=== PATIENT | female | born 1995 | race African-American/Black ===

== ENCOUNTER 2018-12-31 20:12 | Emergency (ER) | payer OTHER ==
--- NOTE | 2018-12-31 20:41 | EDM.PDOC ---
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 Past medical history: As per history of present illness and as reviewed below otherwise noncontributory. Surgical history: As per history of present illness and as reviewed below otherwise noncontributory. Social history: No reported history of drug or alcohol abuse. Family history: As per history of present illness and as reviewed below otherwise noncontributory. Physical exam: HEENT: Atraumatic, normocephalic, pupils reactive, negative for conjunctival pallor or scleral icterus, mucous membranes moist, throat clear, neck supple, nontender, trachea midline. Lungs: Clear to auscultation, breath sounds equal bilaterally, chest nontender. Heart: S1S2, regular, negative for clicks, rubs, or JVD. Abdomen: Soft, nondistended, nontender. Negative for masses or hepatosplenomegaly. Negative for costovertebral tenderness. Pelvis: Stable nontender. Genitourinary: Deferred. Rectal: Deferred. Extremities: Atraumatic, negative for cords or calf pain. Neurovascular unremarkable. Neuro: Awake, alert, oriented. Cranial nerves II through XII unremarkable. Cerebellum unremarkable. Motor and sensory unremarkable throughout. Exam nonfocal. Diagnostics: CBC CMP quantitative beta UA ABO Rh pelvic ultrasound Therapeutics: None Impression: #1 first trimester #2 threatened #3 medical screening Definitive disposition and diagnosis as appropriate pending reevaluation and review of above. bilateral lower side Pain Score (Numeric/FACES): 7 - Related Data Allergies Allergy/AdvReac Type Severity Reaction Status Date / Time No Known Allergies Allergy Verified 12/31/18 20:24 Home Meds: Home Meds #103/Iron Fumarate/Fa [ ] 1 tab PO DAILY 12/31/18 [ History] Past Medical History - Past Health History Medical/Surgical History: Denies Medical/Surgical History Social & Family History - Family History Family Medical History: Noncontributory - Tobacco Use Smoking Status *Q: Never Smoker - Recreational Drug Use Recreational Drug Use: No ED ROS GENERAL - Review of Systems Review Of Systems: ROS reveals no pertinent complaints other than HPI. ED EXAM, GENERAL - Physical Exam Exam: See Below (See dictation) Course - Vital Signs Last Recorded V/S: Last Vital Signs Temp 36.1 C 12/31/18 20:12 Pulse 76 12/31/18 20:12 Resp 18 12/31/18 20:12 BP 109/67 12/31/18 20:12 Pulse Ox 98 12/31/18 20:12 - Orders/Labs/Meds Orders: Active Orders 24 hr Category Date Time Status OB 1st Tri Sgl 1st Gest [US] Stat Exams 12/31/18 20:22 Taken ABO/RH TYPE [BBK] Stat Lab 12/31/18 20:31 Received CULTURE URINE [RM] Stat Lab 12/31/18 20:30 Received Labs: Laboratory Tests 12/31/18 12/31/18 12/31/18 Range/Units 20:30 20:31 20:31 WBC 6.37 (4.0-11.0) K/uL RBC 4.05 L (4.30-5.90) M/uL Hgb 12.3 (12.0-16.0) g/dL Hct 35.7 L (36.0-46.0) % MCV 88.1 (80.0-98.0) fL MCH 30.4 (27.0-32.0) pg MCHC 34.5 (31.0-37.0) g/dL RDW Std Deviation 42.8 (28.0-62.0) fl RDW Coeff of Lyle 13 (11.0-15.0) % Plt Count 303 (150-400) K/uL MPV 9.30 (7.40-12.00) fL Neut % (Auto) 51.6 (48.0-80.0) % Lymph % (Auto) 39.6 (16.0-40.0) % [place] % (Auto) 7.1 (0.0-15.0) % Eos % (Auto) 1.4 (0.0-7.0) % Baso % (Auto) 0.3 (0.0-1.5) % Neut # (Auto) 3.3 (1.4-5.7) K/uL Lymph # (Auto) 2.5 H (0.6-2.4) K/uL [place] # (Auto) 0.5 (0.0-0.8) K/uL Eos # (Auto) 0.1 (0.0-0.7) K/uL Baso # (Auto) 0.0 (0.0-0.1) K/uL Nucleated RBC % 0.0 /100WBC Nucleated RBCs # 0 K/uL Sodium 139 (136-145) mmol/L Potassium 3.5 (3.5-5.1) mmol/L Chloride 104 (98-107) mmol/L Carbon Dioxide 22.4 (21.0-32.0) mmol/L BUN 7 (7.0-18.0) mg/dL Creatinine 0.8 (0.6-1.0) mg/dL Est Cr Clr Drug Dosing TNP Estimated GFR (MDRD) > 60.0 ml/min Glucose 98 (74-106) mg/dL Calcium 8.8 (8.5-10.1) mg/dL Total Bilirubin 0.2 (0.2-1.0) mg/dL AST 15 (15-37) IU/L ALT 13 L (14-63) IU/L Alkaline Phosphatase 59 (46-116) U/L Total Protein 8.0 (6.4-8.2) g/dL Albumin 3.4 (3.4-5.0) g/dL Globulin 4.6 H (2.6-4.0) g/dL Albumin/Globulin Ratio 0.7 L (0.9-1.6) HCG, Quant 88705.0 mIU/mL Urine Color YELLOW Urine Appearance CLEAR Urine pH 6.0 (5.0-8.0) Ur Specific [place] 1.010 (1.001-1.035) Urine Protein NEGATIVE (NEGATIVE) mg/dL Urine Glucose (UA) NEGATIVE (NEGATIVE) mg/dL Urine Ketones NEGATIVE (NEGATIVE) mg/dL Urine Occult Blood NEGATIVE (NEGATIVE) Urine Nitrite NEGATIVE (NEGATIVE) Urine Bilirubin NEGATIVE (NEGATIVE) Urine Urobilinogen 0.2 (<2.0) EU/dL Ur Leukocyte Esterase TRACE H (NEGATIVE) Urine RBC NONE SEEN (0-2/HPF) Urine WBC 0-1 (0-5/HPF) Ur Epithelial Cells RARE (NONE-FEW) Urine Bacteria 1+ H (NEGATIVE) Urine Mucus LIGHT (NONE-MOD) Departure - Departure Time of Disposition: 22:01 Disposition: Home, Self-Care 01 Condition: Good Clinical Impression: Threatened miscarriage - Discharge Information Forms: ED Department Discharge Additional Instructions: The following information is given to patients seen in the emergency department who are being discharged to home. This information is to outline your options for follow-up care. We provide all patients seen in our emergency department with a follow-up referral. The need for follow-up, as well as the timing and circumstances, are variable depending upon the specifics of your emergency department visit. If you don't have a primary care physician on staff, we will provide you with a referral. We always advise you to contact your personal physician following an emergency department visit to inform them of the circumstance of the visit and for follow-up with them and/or the need for any referrals to a consulting specialist. The emergency department will also refer you to a specialist when appropriate. This referral assures that you have the opportunity for followup care with a specialist. All of these measure are taken in an effort to provide you with optimal care, which includes your followup. Under all circumstances we always encourage you to contact your private physician who remains a resource for coordinating your care. When calling for followup care, please make the office aware that this follow-up is from your recent emergency room visit. If for any reason you are refused follow-up, please contact the [facility] emergency department at and asked to speak to the emergency department charge nurse. Vaginal rest as discussed follow-up WRAP KNITTING MACHINE OPERATOR return as needed as discussed - My Orders Last 24 Hours: My Active Orders 12/31/18 20:22 OB 1st Tri Sgl 1st Gest [US] Stat 12/31/18 20:30 CULTURE URINE [RM] Stat 12/31/18 20:31 ABO/RH TYPE [BBK] Stat - Assessment/Plan Last 24 Hours: My Active Orders 12/31/18 20:22 OB 1st Tri Sgl 1st Gest [US] Stat 12/31/18 20:30 CULTURE URINE [RM] Stat 12/31/18 20:31 ABO/RH TYPE [BBK] Stat
[2018-12-31 21:23] LABS: CHLORIDE,CL 104 mmol/L (98-107); SODIUM,NA 139 mmol/L (136-145)
--- NOTE | 2018-12-31 22:12 | US ---
INDICATION: Pelvic pain TECHNIQUE: Ultrasound OB pelvis transvaginal. Real time ferrell scale imaging of the pelvis was performed. Illness transducer was used to image the right lower quadrant in an attempt to identify the appendix. COMPARISON: None FINDINGS: Gestational sac: Sonographic imaging demonstrates a single intrauterine gestation with a normal appearance. A small subchorionic hemorrhage is noted measuring 1.5 x 1.2 cm.The amount of fluid within the sac appears appropriate for gestational age. Fetus: The embryo demonstrates a regular cardiac rate measuring 99 beats per minute. The embryo`s crown rump length measurement of 28 mm corresponds to a gestational age of 5 weeks, 6 days. There are no gross abnormalities noted within the embryo at this early state of development. There is a normal appearing yolk sac. Placenta: The placenta has not yet developed. Pelvis: The visualized cervix is closed. The visualized myometrium appears normal. The ovaries are of normal size. A thick-walled isoechoic structure seen in the right ovary, likely a corpus luteal cyst. Arterial blood flow is seen in both ovaries. A small amount of pelvic ascites noted. An anechoic tubular structure seen in the right lower quadrant which may represent a fallopian tube or loop of bowel. The appendix cannot be visualized by sonography. IMPRESSION: 1. Single viable intrauterine with an estimated gestational age of 5 weeks, 6 days. 2. bradycardia is noted and follow-up imaging is recommended. 3. A small subchorionic hemorrhage is noted measuring 1.5 x 1.2 cm. Dictated by Bakari Islas MD @ 12/31/2018 10:11:28 PM Dictated by: Bakari Islas MD @ 12/31/2018 22:11:43 (Electronically Signed)
== END 2018-12-31 22:17 | disposition home or self-care (01) ==
LOC: MW.ED 20:12
DX: O20.0 Threatened abortion (principal); Z3A.01 Less than 8 weeks gestation of pregnancy
CPT/HCPCS: 36415; 76801; 76801-26; 80053; 81001; 84702; 85025; 86900; 86901; 87086; 99284-25

== ENCOUNTER 2019-08-09 06:05 | Inpatient (IN) | payer OTHER ==
[2019-08-09] MEDS ORDERED: Methylergonovine 0.2 MG/1 ML Amp IM PRN (18:15)
[2019-08-09] MEDS ORDERED: Sodium Chloride 0.9% 10 ML Syringe FLUSH PRN (18:15)
[2019-08-09] MEDS ORDERED: Ondansetron 4 MG/2 ML SDV IVPUSH PRN (18:15)
[2019-08-09] MEDS ORDERED: Oxytocin/0.9 % Sodium Chloride 30 UNIT/500 ML BAG IV SCH ×2 (18:15)
[2019-08-09] MEDS ORDERED: Sodium Chloride 0.9% 2.5 ML Syringe FLUSH PRN (18:15)
[2019-08-09] MEDS ORDERED: Carboprost Tromethamine 250 MCG/1 ML Amp IM PRN (18:15)
[2019-08-09] MEDS ORDERED: Misoprostol 200 MCG Tab PO PRN (18:15)
[2019-08-09] MEDS ORDERED: Tranexamic Acid 1,000 MG in Sodium Chloride 0.9% 100 ML IV PRN (18:15)
[2019-08-09] MEDS ORDERED: Sodium Chloride 0.9% 10 ML SDV IV PRN (18:15)
[2019-08-09] MEDS ORDERED: Terbutaline 1 MG/ML SDV SUBCUT PRN (18:15)
[2019-08-09] MEDS ORDERED: Dinoprostone 10 MG Insert VAG PRN (18:15)
[2019-08-09] MEDS ORDERED: Water For Irrigation,Sterile 1,000 ML Container IRR PRN (18:15)
[2019-08-09] MEDS ORDERED: Lidocaine 1% 50 ML MDV INJECT PRN (18:15)
[2019-08-09] MEDS ORDERED: Ampicillin 2 GM in Sodium Chloride 0.9% 100 ML IV ONE (18:30)
[2019-08-09] MEDS: Lactated Ringers 1,000 ML IV SCH (20:38)
[2019-08-10] MEDS: Ampicillin 1 GM in Sodium Chloride 0.9% 50 ML IV SCH ×2 (00:58→04:49)
[2019-08-10] MEDS: Acetaminophen 500 MG Tab PO PRN ×2 (02:01→10:36)
[2019-08-10] MEDS: Butorphanol 1 MG/ML SDV IVPUSH PRN ×2 (03:00→05:30)
[2019-08-10] MEDS: Lactated Ringers 1,000 ML IV SCH (05:32)
[2019-08-10] MEDS ORDERED: Acetaminophen 500 MG Tab PO PRN ×2 (06:29)
[2019-08-10] MEDS ORDERED: Aluminum Hydroxide/Magnesium Hydroxide/Simethicone Susp 30 ML Cup PO PRN (06:29)
[2019-08-10] MEDS ORDERED: Lanolin 100% Cream 7 GM Tube TOP PRN (06:29)
[2019-08-10] MEDS ORDERED: Docusate Sodium 100 MG Cap PO PRN (06:29)
[2019-08-10] MEDS ORDERED: Witch Hazel Medicated Pads 40/Jar TOP PRN (06:29)
[2019-08-10] MEDS ORDERED: Ibuprofen 400 MG Tab PO PRN (06:29)
[2019-08-10] MEDS ORDERED: Bisacodyl 10 MG Supp RECTAL PRN (06:29)
[2019-08-10] MEDS ORDERED: Benzocaine/Menthol 20%-0.5% Spray 78 GM Cannister TOP PRN (06:29)
--- NOTE | 2019-08-10 06:39 | PCM.OPNOTE ---
- General Post-Op/Procedure Note Date of Surgery/Procedure: 08/10/19 Operative Procedure(s): /IP-precipitous Findings: Viable male APGARs 7,9 weight 2300 gm. Spontaneous delivery intact placenta with 3V cord Pre Op Diagnosis: 37 week IUP. IUGR Post-Op Diagnosis: Same Primary Surgeon: Bibi Barnes EBL in mLs: 250 Complications: none known Condition: Good Free Text/Narrative:: Dictation [id number]
[2019-08-10] MEDS: Ibuprofen 800 MG Tab PO PRN ×2 (07:57→21:36)
--- NOTE | 2019-08-10 08:40 | OR ---
SURGEON: Bibi Barnes M.D. DATE OF PROCEDURE: 08/10/2019 PREOPERATIVE DIAGNOSES: 1. 37-week intrauterine . 2. Intrauterine growth restriction. POSTOPERATIVE DIAGNOSES: 1. 37-week intrauterine . 2. Intrauterine growth restriction. PROCEDURE: Spontaneous vaginal delivery, intact perineum, precipitous. PRIMARY SURGEON: Bibi Barnes M.D. ANESTHESIA: None. ESTIMATED BLOOD LOSS: 250 mL. COMPLICATIONS: None. FINDINGS: Viable male, scores 7 at 1 minute and 9 at 5 minutes. Weight of 2300 g. Spontaneous delivery, intact placenta, 3-vessel cord. DISPOSITION: Infant to nursery, mom in LDRP. PROCEDURE DETAILS: Janette is a 24-year-old , who has been on the evening of 08/10/2019 after undergoing routine OB care and with her weekly surveillance for intrauterine growth restriction, umbilical artery Dopplers were abnormal measuring greater than the 95th percentile for gestational age. Given this abnormal finding, felt it was best to proceed with induction of labor. Therefore, the patient was admitted. Routine labs were drawn. IV hydration was initiated. She underwent Cervidil placement after reactive NST was able to be obtained. The patient responded very nicely to the Cervidil becoming quickly increasingly comfortable. Shortly after 2:00 a.m., she was found to be 3 cm, 74% effaced, and -2 station. Therefore, the Cervidil was removed and was monitored. Upon the start of Pitocin, however, within the next 3 hours, had progressed to 6 cm, 90% effaced, +1 station. heart tones remained in the 140s. The patient underwent 1 dose of stadol and then within the next hour progressed to complete, 100% effaced, +2 station with spontaneous rupture of membranes, feeling much urge to push, and I was called for delivery. Upon my arrival, the had delivered precipitously with the attending nursing staff present. Infant was vigorous and crying. Cord was clamped x2 and cut. was handed off to attending nursing staff. Cord arterial, cord venous, cord blood sampling were obtained. Light suprapubic pressure was applied while the placenta was delivered spontaneously intact, this will be sent to pathology. Vigorous fundal uterine massage was then applied while 30 units of Pitocin was delivered in 500 mL of IV fluid. Upon inspection of cervix, vaginal sidewall, and perineum, these were found to be intact. Uterus remained firm. Hemostasis remained evident. The patient will remain in LDRP, infant to nursery. JOSELITO WILL /[id number] MTDD
[2019-08-10] MEDS: oxyCODONE 5 MG Tab PO PRN ×2 (10:35→21:34)
[2019-08-11] MEDS: Ibuprofen 800 MG Tab PO PRN (07:33)
--- NOTE | 2019-08-11 09:01 | PCM.PNPP ---
- General Info Date of Service: 08/11/19 Functional Status: Reports: Pain Controlled, Tolerating Diet, Ambulating, Urinating - Review of Systems General: Denies: Fever, Weakness, Fatigue Pulmonary: Denies: Shortness of Breath Cardiovascular: Denies: Chest Pain, Palpitations, Lightheadedness Gastrointestinal: Denies: Nausea, Vomiting Genitourinary: Denies: Flank Pain Musculoskeletal: Reports: No Symptoms Skin: Reports: No Symptoms Neurological: Reports: No Symptoms Psychiatric: Reports: No Symptoms - General Info Date of Service: 08/11/19 - Patient Data Vital Signs - Most Recent: Last Vital Signs Temp 36.9 C 08/11/19 04:00 Pulse 73 08/11/19 04:00 Resp 16 08/11/19 04:00 BP 91/61 08/11/19 04:00 Pulse Ox 99 08/11/19 04:00 Weight - Most Recent: 54.431 kg Lab Results - Last 24 Hours: Laboratory Results - last 24 hr 08/11/19 Range/Units 06:25 Hgb 11.4 L (12.0-16.0) g/dL Hct 34.4 L (36.0-46.0) % Med Orders - Current: Current Medications Acetaminophen (Tylenol Extra Strength) 1,000 mg PO Q6H PRN PRN Reason: Headache Last Admin: 08/10/19 10:36 Dose: 1,000 mg Acetaminophen (Tylenol Extra Strength) 500 mg PO Q4H PRN PRN Reason: Pain Acetaminophen (Tylenol Extra Strength) 1,000 mg PO Q4H PRN PRN Reason: Pain Last Admin: 08/11/19 07:34 Dose: 1,000 mg Al Hydroxide/Mg Hydroxide (Mag-Al Plus) 30 ml PO Q8H PRN PRN Reason: Heartburn Benzocaine/Menthol (Dermoplast Pain Relief 20%-0.5% [place]) 78 gm TOP ASDIRECTED PRN PRN Reason: Perineal Comfort Measure Last Admin: 08/10/19 07:59 Dose: 1 applic Bisacodyl (Dulcolax) 10 mg RECTAL ONETIME PRN PRN Reason: Constipation Carboprost Tromethamine (Hemabate Ds) 250 mcg IM ASDIRECTED PRN PRN Reason: Post Hemorrhage Docusate Sodium (Colace) 100 mg PO BID PRN PRN Reason: Constipation Last Admin: 08/10/19 07:57 Dose: 100 mg Emollient Ointment (Lansinoh Hpa) 0 gm TOP ASDIRECTED PRN PRN Reason: Sore Nipples Last Admin: 08/10/19 07:56 Dose: 1 applic Lactated Ringer's (Ringers, Lactated) 1,000 mls @ 150 mls/hr IV ASDIRECTED ALEX Last Admin: 08/10/19 05:32 Dose: 150 mls/hr Tranexamic Acid 1,000 mg/ (Sodium Chloride) 110 mls @ 660 mls/hr IV ONETIME PRN PRN Reason: Bleeding Ibuprofen (Motrin) 400 mg PO Q4H PRN PRN Reason: Pain Ibuprofen (Motrin) 800 mg PO Q6H PRN PRN Reason: Pain Last Admin: 08/11/19 07:33 Dose: 800 mg Ondansetron HCl (Zofran) 4 mg IVPUSH Q4H PRN PRN Reason: Nausea/Vomiting Oxycodone HCl (Oxycodone) 5 mg PO Q2H PRN PRN Reason: Pain Last Admin: 08/10/19 21:34 Dose: 5 mg Sodium Chloride (Saline Flush) 10 ml FLUSH ASDIRECTED PRN PRN Reason: Keep Vein Open Sodium Chloride (Saline Flush) 2.5 ml FLUSH ASDIRECTED PRN PRN Reason: Keep Vein Open Sodium Chloride (Normal Saline) 10 ml IV ASDIRECTED PRN PRN Reason: IV Use Witch Lesli (Tucks) 1 pad TOP ASDIRECTED PRN PRN Reason: comfort care Last Admin: 08/10/19 08:00 Dose: 1 applic Discontinued Medications Butorphanol Tartrate (Stadol) 1 mg IVPUSH Q1H PRN PRN Reason: Pain Last Admin: 08/10/19 05:30 Dose: 1 mg Dinoprostone (Cervidil) 10 mg VAG ONETIME PRN PRN Reason: Cervical Ripening Last Admin: 08/09/19 20:23 Dose: 10 mg Ampicillin Sodium 2 gm/ Sodium (Chloride) 100 mls @ 200 mls/hr IV ONETIME ONE Stop: 08/09/19 18:59 Last Admin: 08/09/19 20:38 Dose: 200 mls/hr Ampicillin Sodium 1 gm/ Sodium (Chloride) 50 mls @ 100 mls/hr IV Q4H ALEX Last Admin: 08/10/19 04:49 Dose: 100 mls/hr Oxytocin/Sodium Chloride (Oxytocin 30 Unit/500 Ml-Ns) 30 unit in 500 mls @ 500 mls/hr IV TITRATE ALEX Last Admin: 08/10/19 06:06 Dose: 999 mls/hr Oxytocin/Sodium Chloride (Oxytocin 30 Unit/500 Ml-Ns) 30 unit in 500 mls @ 2 mls/hr IV TITRATE ALEX; Protocol Lidocaine HCl (Xylocaine 1%) 50 ml INJECT ONETIME PRN PRN Reason: Laceration repair Methylergonovine Maleate (Methergine) 0.2 mg IM ASDIRECTED PRN PRN Reason: Post Hemorrhage Misoprostol (Cytotec) 200 mcg PO ONETIME PRN PRN Reason: Post Hemorrhage Sterile Water (Sterile Water For Irrigation) 1,000 ml IRR ASDIRECTED PRN PRN Reason: delivery Last Admin: 08/10/19 06:33 Dose: 1,000 ml Terbutaline Sulfate (Brethine) 0.25 mg SUBCUT ASDIRECTED PRN PRN Reason: Tacysystole - Interaction Support Person: - Recovery Exam Fundal Tone: Firm Fundal Level: 2 Fingerbreadths Below Umbilicus Fundal Placement: Midline Lochia Amount: Small Lochia Color: Rubra/Red Perineum Description: Intact, Minimal Bruising/Swelling Episiotomy/Laceration: None Bladder Status: Voiding Urinary Elimination: Voided - Exam General: Alert, Oriented Lungs: Normal Respiratory Effort Cardiovascular: Regular Rate, Regular Rhythm GI/Abdominal Exam: Normal Bowel Sounds, Soft Extremities: Pedal Edema (trace). No: Favian's Sign Skin: Warm, Dry, Intact Neurological: No New Focal Deficit Psy/Mental Status: Alert, Normal Affect, Normal Mood - Problem List & Annotations (1) Vaginal delivery SNOMED Code(s): 219855149 Code(s): O80 - ENCOUNTER FOR FULL-TERM UNCOMPLICATED DELIVERY Status: Acute Current Visit: Yes - Problem List Review Problem List Initiated/Reviewed/Updated: Yes - My Orders Last 24 Hours: My Active Orders 08/11/19 08:55 Ready for Discharge [RC] PER UNIT ROUTINE - Assessment Assessment:: PPD 1 status post - Plan Plan:: Patient doing well overall and would like to go home. Discharge instructions reviewed. Follow up at [facility] 6 weeks.Discharge to home today.
== END 2019-08-11 15:50 | disposition home or self-care (01) | DRG 807 ==
LOC: MW.OB 06:05 → OBSVTOIN 08-10 06:05 → MW.OB 08-10 08:52
PROVIDERS: ADMIT Obstetrics & Gynecology; ATTEND Obstetrics & Gynecology
PROC: 10E0XZZ Delivery of Products of Conception, External Approach (ICD-10-PCS; principal; 2019-08-11)
PROC: 3E0P7VZ Introduction of Hormone into Female Reproductive, Via Natural or Artificial Opening (ICD-10-PCS; 2019-08-11)
PROC: 3E033VJ Introduction of Other Hormone into Peripheral Vein, Percutaneous Approach (ICD-10-PCS; 2019-08-11)
DX: O36.5930 Maternal care for other known or suspected poor fetal growth, third trimester, not applicable or unspecified (principal); Z37.0 Single live birth; O62.3 Precipitate labor; Z3A.37 37 weeks gestation of pregnancy
CPT/HCPCS: 36415; 59025; 59409; 82803; 85014; 85018; 85027; 86593; 86850; 86900; 86901; 88307; A9270-GY; J0290; J0595; J2590; J7030; J7050; J7120

== ENCOUNTER 2021-05-23 08:29 | Inpatient (IN) | payer OTHER ==
[2021-05-23] MEDS ORDERED: Oxytocin/0.9 % Sodium Chloride 30 UNIT/500 ML BAG ONE (08:50)
[2021-05-23] MEDS ORDERED: Misoprostol 200 MCG Tab PO PRN (09:05)
[2021-05-23] MEDS ORDERED: Sodium Chloride 0.9% 10 ML SDV IV PRN (09:05)
[2021-05-23] MEDS ORDERED: Ondansetron 4 MG/2 ML SDV IVPUSH PRN (09:05)
[2021-05-23] MEDS ORDERED: Lidocaine 1% 50 ML MDV INJECT PRN (09:05)
[2021-05-23] MEDS ORDERED: Methylergonovine 0.2 MG/1 ML Amp IM PRN (09:05)
[2021-05-23] MEDS ORDERED: Butorphanol 1 MG/ML SDV IVPUSH PRN (09:05)
[2021-05-23] MEDS ORDERED: Carboprost Tromethamine 250 MCG/1 ML Amp IM PRN (09:05)
[2021-05-23] MEDS ORDERED: Water For Irrigation,Sterile 1,000 ML Container IRR PRN (09:05)
[2021-05-23] MEDS ORDERED: Sodium Chloride 0.9% 2.5 ML Syringe FLUSH PRN (09:05)
[2021-05-23] MEDS ORDERED: Sodium Chloride 0.9% 10 ML Syringe FLUSH PRN (09:05)
[2021-05-23] MEDS ORDERED: Tranexamic Acid 1,000 MG in Sodium Chloride 0.9% 100 ML IV PRN (09:05)
[2021-05-23] MEDS ORDERED: Oxytocin/0.9 % Sodium Chloride 30 UNIT/500 ML BAG IV SCH (09:15)
[2021-05-23] MEDS ORDERED: Lactated Ringers 1,000 ML IV SCH (09:15)
[2021-05-23] MEDS ORDERED: Benzocaine/Menthol 20%-0.5% Spray 78 GM Cannister TOP PRN (09:38)
[2021-05-23] MEDS ORDERED: Ibuprofen 400 MG Tab PO PRN (09:38)
[2021-05-23] MEDS ORDERED: Witch Hazel Medicated Pads 40/Jar TOP PRN (09:38)
[2021-05-23] MEDS ORDERED: Bisacodyl 10 MG Supp RECTAL PRN (09:38)
[2021-05-23] MEDS ORDERED: oxyCODONE 5 MG Tab PO PRN (09:38)
[2021-05-23] MEDS ORDERED: Acetaminophen 500 MG Tab PO PRN (09:38)
[2021-05-23] MEDS ORDERED: Lanolin 100% Cream 7 GM Tube TOP PRN (09:38)
--- NOTE | 2021-05-23 09:45 | PCM.OPNOTE ---
- General Post-Op/Procedure Note Date of Surgery/Procedure: 05/23/21 Operative Procedure(s): /IP Precipitous Findings: Viable female APGARs 8, 8 weight pending. Spontaneous delivery intact placenta with 3V cord Pre Op Diagnosis: 37/6 week IUP. Active labor. GBBS unknown Post-Op Diagnosis: Same Primary Surgeon: Bibi Barnes EBL in mLs: 250 Complications: none known Condition: Good Free Text/Narrative:: Dictation [id number]
[2021-05-23] MEDS: Ibuprofen 800 MG Tab PO PRN ×2 (10:09→20:48)
--- NOTE | 2021-05-23 11:34 | OR ---
SURGEON: Bibi Barnes M.D. DATE OF PROCEDURE: 05/23/2021 PREOPERATIVE DIAGNOSES: 1. 37 and 6/7 weeks' intrauterine . 2. Active labor. 3. Group B strep unknown. POSTOPERATIVE DIAGNOSES: 1. 37 and 6/7 weeks' intrauterine . 2. Active labor. 3. Group B strep unknown. PROCEDURE: Spontaneous vaginal delivery, intact perineum. PRIMARY SURGEON: Bibi Barnes M.D. ANESTHESIA: None. ESTIMATED BLOOD LOSS: 250 mL. COMPLICATIONS: None known. FINDINGS: Viable female, score of 8 at one minute and 8 at five minutes. Weight is pending. Spontaneous delivery, intact placenta, 3-vessel cord. DISPOSITION: to nursery, mom in LDRP. PROCEDURE DETAILS: Janette is a 25-year-old, G2, P1, at 37 and 6/7 weeks' gestational age, who presents on the morning of 05/23/2021 with regular contractions. On initial examination, she was found to be 9 cm. Therefore, she was admitted, routine labs drawn. IV hydration was initiated and she quickly progressed to complete. As I was in the next room, called for delivery. The head delivered precipitously with the labor and delivery nurse attending. Remainder of the body was delivered without difficulty. was handed off to the mother with attending nursery staff at her side. After a delay, cord was clamped x2 and cut. Cord blood sampling was obtained. Light pressure was applied while the placenta was delivered spontaneously intact. Vigorous fundal uterine massage was then applied while 30 units of Pitocin was delivered in 500 mL of IV fluid. Upon inspection of cervix, vaginal sidewall, and perineum, these were found to be intact. Uterus remained firm. Sponge and instrument count was correct. The patient remained in LDRP, infant to nursery. JOSELITO / NICOLETTE /[id number]
[2021-05-23] MEDS: Docusate Sodium 100 MG Cap PO PRN (13:56)
[2021-05-23] MEDS: Acetaminophen 500 MG Tab PO PRN ×2 (13:56→19:16)
[2021-05-24] MEDS: Docusate Sodium 100 MG Cap PO PRN ×2 (08:05→22:22)
[2021-05-24] MEDS: Ibuprofen 800 MG Tab PO PRN ×2 (08:05→16:49)
--- NOTE | 2021-05-24 10:38 | PCM.PNPP ---
- General Info Date of Service: 05/24/21 Subjective Update: 25yo P2012 s/p PPD1 , doing well, ambulating , voiding and tolerating regular diet Normal lochia Functional Status: Reports: Pain Controlled, Tolerating Diet, Ambulating, Urinating - Review of Systems General: Reports: No Symptoms HEENT: Reports: No Symptoms Pulmonary: Reports: No Symptoms Cardiovascular: Reports: No Symptoms Gastrointestinal: Reports: No Symptoms Genitourinary: Reports: No Symptoms Musculoskeletal: Reports: No Symptoms Skin: Reports: No Symptoms Neurological: Reports: No Symptoms Psychiatric: Reports: No Symptoms - General Info Date of Service: 05/24/21 - Patient Data Vital Signs - Most Recent: Last Vital Signs Temp 36.1 C 05/24/21 08:23 Pulse 67 05/24/21 08:23 Resp 16 05/24/21 08:23 BP 92/55 L 05/24/21 08:23 Pulse Ox 98 05/24/21 08:23 Weight - Most Recent: 55.792 kg Lab Results - Last 24 Hours: Laboratory Results - last 24 hr 05/24/21 Range/Units 05:05 Hgb 10.2 L (12.0-16.0) g/dL Hct 30.8 L (36.0-46.0) % Med Orders - Current: Current Medications Acetaminophen (Acetaminophen 500 Mg Tab) 500 mg PO Q4H PRN PRN Reason: Pain (mild 1-3) Last Admin: 05/24/21 02:31 Dose: 500 mg Documented by: Acetaminophen (Acetaminophen 500 Mg Tab) 1,000 mg PO Q4H PRN PRN Reason: Pain (mild 1-3) Last Admin: 05/23/21 19:16 Dose: 1,000 mg Documented by: Benzocaine/Menthol (Benzocaine/Menthol 20%-0.5% [place] 78 Gm Cannister) 78 gm TOP ASDIRECTED PRN PRN Reason: Perineal Comfort Measure Last Admin: 05/23/21 10:13 Dose: 1 bottle Documented by: Bisacodyl (Bisacodyl 10 Mg Supp) 10 mg RECTAL ONETIME PRN PRN Reason: Constipation Carboprost Tromethamine (Carboprost Tromethamine 250 Mcg/1 Ml Amp) 250 mcg IM ASDIRECTED PRN PRN Reason: Post Hemorrhage Docusate Sodium (Docusate Sodium 100 Mg Cap) 100 mg PO Q12H PRN PRN Reason: Constipation Last Admin: 05/24/21 08:05 Dose: 100 mg Documented by: Emollient Ointment (Lanolin 100% Cream 7 Gm Tube) 0 gm TOP ASDIRECTED PRN PRN Reason: Sore Nipples Last Admin: 05/23/21 10:13 Dose: 1 applic Documented by: Lactated Ringer's (Ringers, Lactated) 1,000 mls @ 150 mls/hr IV ASDIRECTED ALEX Last Admin: 05/23/21 08:58 Dose: 150 mls/hr Documented by: Oxytocin/Sodium Chloride (Oxytocin 30 Unit/500 Ml-Ns) 30 unit in 500 mls @ 999 mls/hr IV TITRATE [facility] Last Admin: 05/23/21 09:20 Dose: 999 mls/hr Documented by: Tranexamic Acid 1,000 mg/ (Sodium Chloride) 110 mls @ 660 mls/hr IV ONETIME PRN PRN Reason: Bleeding Ibuprofen (Ibuprofen 400 Mg Tab) 400 mg PO Q4H PRN PRN Reason: Pain (mild 1-3) Ibuprofen (Ibuprofen 800 Mg Tab) 800 mg PO Q6H PRN PRN Reason: Pain (mild 1-3) Last Admin: 05/24/21 08:05 Dose: 800 mg Documented by: Lidocaine HCl (Lidocaine 1% 50 Ml Mdv) 50 ml INJECT ONETIME PRN PRN Reason: Laceration repair Methylergonovine Maleate (Methylergonovine 0.2 Mg/1 Ml Amp) 0.2 mg IM ASDIRECTED PRN PRN Reason: Post Hemorrhage Ondansetron HCl (Ondansetron 4 Mg/2 Ml Sdv) 4 mg IVPUSH Q6H PRN PRN Reason: Nausea/Vomiting Oxycodone HCl (Oxycodone 5 Mg Tab) 5 mg PO Q2H PRN PRN Reason: Pain (severe 7-10) Last Admin: 05/24/21 02:32 Dose: 5 mg Documented by: Sodium Chloride (Sodium Chloride 0.9% 10 Ml Syringe) 10 ml FLUSH ASDIRECTED PRN PRN Reason: Keep Vein Open Sodium Chloride (Sodium Chloride 0.9% 2.5 Ml Syringe) 2.5 ml FLUSH ASDIRECTED PRN PRN Reason: Keep Vein Open Sodium Chloride (Sodium Chloride 0.9% 10 Ml Sdv) 10 ml IV ASDIRECTED PRN PRN Reason: IV Use Sterile Water (Water For Irrigation,Sterile 1,000 Ml Container) 1,000 ml IRR ASDIRECTED PRN PRN Reason: delivery Witch Lesli (Witch Lesli Medicated Pads 40/Jar) 1 pad TOP ASDIRECTED PRN PRN Reason: comfort care Last Admin: 05/23/21 10:12 Dose: 1 container Documented by: Discontinued Medications Butorphanol Tartrate (Butorphanol 1 Mg/Ml Sdv) 1 mg IVPUSH Q1H PRN PRN Reason: Pain (severe 7-10) Oxytocin/Sodium Chloride (Oxytocin 30 Unit/500 Ml-Ns) Confirm Administered Dose 30 unit in 500 mls @ as directed .ROUTE .STK-MED ONE Stop: 05/23/21 08:51 Misoprostol (Misoprostol 200 Mcg Tab) 200 mcg PO ONETIME PRN PRN Reason: Post Hemorrhage - Infant Interaction Support Person: - Recovery Exam Fundal Tone: Firm Fundal Level: 3 Fingerbreadths Below Umbilicus Fundal Placement: Midline Lochia Amount: Scant Lochia Color: Rubra/Red Perineum Description: Intact, Minimal Bruising/Swelling Episiotomy/Laceration: None Bladder Status: Voiding Urinary Elimination: Voided - Exam General: Alert HEENT: Pupils Equal Neck: Supple Lungs: Clear to Auscultation Cardiovascular: Regular Rate, Regular Rhythm Extremities: Normal Inspection Neurological: No New Focal Deficit Psy/Mental Status: Alert - Problem List & Annotations (1) Vaginal delivery SNOMED Code(s): 221237455 Code(s): O80 - ENCOUNTER FOR FULL-TERM UNCOMPLICATED DELIVERY Status: Acute Current Visit: No - Problem List Review Problem List Initiated/Reviewed/Updated: Yes - Assessment Assessment:: 25yo P2 s/p , PPD1 GBS unknown Doing well - Plan Plan:: Routine care Pain control as needed Encourage Possible D/C home tomorrow
[2021-05-24] MEDS: Acetaminophen 500 MG Tab PO PRN ×2 (13:32→22:21)
[2021-05-25] MEDS: Acetaminophen 500 MG Tab PO PRN ×2 (03:28→08:42)
[2021-05-25] MEDS: Ibuprofen 800 MG Tab PO PRN ×2 (03:29→12:48)
[2021-05-25] MEDS: Docusate Sodium 100 MG Cap PO PRN (08:41)
--- NOTE | 2021-05-25 10:53 | PCM.PNPP ---
- General Info Date of Service: 05/25/21 Subjective Update: 25yo P2012 s/p PPD2 , doing well, ambulating , voiding and tolerating regular diet Normal lochia Functional Status: Reports: Pain Controlled, Tolerating Diet, Ambulating, Urinating - Review of Systems General: Reports: No Symptoms HEENT: Reports: No Symptoms Pulmonary: Reports: No Symptoms Cardiovascular: Reports: No Symptoms Gastrointestinal: Reports: No Symptoms Genitourinary: Reports: No Symptoms Musculoskeletal: Reports: No Symptoms Skin: Reports: No Symptoms Neurological: Reports: No Symptoms Psychiatric: Reports: No Symptoms - General Info Date of Service: 05/25/21 - Patient Data Vital Signs - Most Recent: Last Vital Signs Temp 36.3 C 05/25/21 08:43 Pulse 66 05/25/21 08:43 Resp 16 05/25/21 08:43 BP 94/60 05/25/21 08:43 Pulse Ox 97 05/25/21 08:43 Weight - Most Recent: 55.792 kg Lab Results - Last 24 Hours: Laboratory Results - last 24 hr 05/23/21 Range/Units 08:58 Group B Strep (PCR) NEGATIVE (NEGATIVE) Med Orders - Current: Current Medications Acetaminophen (Acetaminophen 500 Mg Tab) 500 mg PO Q4H PRN PRN Reason: Pain (mild 1-3) Last Admin: 05/24/21 02:31 Dose: 500 mg Documented by: Acetaminophen (Acetaminophen 500 Mg Tab) 1,000 mg PO Q4H PRN PRN Reason: Pain (mild 1-3) Last Admin: 05/25/21 08:42 Dose: 1,000 mg Documented by: Benzocaine/Menthol (Benzocaine/Menthol 20%-0.5% [place] 78 Gm Cannister) 78 gm T OP ASDIRECTED PRN PRN Reason: Perineal Comfort Measure Last Admin: 05/23/21 10:13 Dose: 1 bottle Documented by: Bisacodyl (Bisacodyl 10 Mg Supp) 10 mg RECTAL ONETIME PRN PRN Reason: Constipation Carboprost Tromethamine (Carboprost Tromethamine 250 Mcg/1 Ml Amp) 250 mcg IM ASDIRECTED PRN PRN Reason: Post Hemorrhage Docusate Sodium (Docusate Sodium 100 Mg Cap) 100 mg PO Q12H PRN PRN Reason: Constipation Last Admin: 05/25/21 08:41 Dose: 100 mg Documented by: Emollient Ointment (Lanolin 100% Cream 7 Gm Tube) 0 gm TOP ASDIRECTED PRN PRN Reason: Sore Nipples Last Admin: 05/23/21 10:13 Dose: 1 applic Documented by: Lactated Ringer's (Ringers, Lactated) 1,000 mls @ 150 mls/hr IV ASDIRECTED [facility] Last Admin: 05/23/21 08:58 Dose: 150 mls/hr Documented by: Oxytocin/Sodium Chloride (Oxytocin 30 Unit/500 Ml-Ns) 30 unit in 500 mls @ 999 mls/hr IV TITRATE [facility] Last Admin: 05/23/21 09:20 Dose: 999 mls/hr Documented by: Tranexamic Acid 1,000 mg/ (Sodium Chloride) 110 mls @ 660 mls/hr IV ONETIME PRN PRN Reason: Bleeding Ibuprofen (Ibuprofen 400 Mg Tab) 400 mg PO Q4H PRN PRN Reason: Pain (mild 1-3) Ibuprofen (Ibuprofen 800 Mg Tab) 800 mg PO Q6H PRN PRN Reason: Pain (mild 1-3) Last Admin: 05/25/21 03:29 Dose: 800 mg Documented by: Lidocaine HCl (Lidocaine 1% 50 Ml Mdv) 50 ml INJECT ONETIME PRN PRN Reason: Laceration repair Methylergonovine Maleate (Methylergonovine 0.2 Mg/1 Ml Amp) 0.2 mg IM ASDIRECTED PRN PRN Reason: Post Hemorrhage Ondansetron HCl (Ondansetron 4 Mg/2 Ml Sdv) 4 mg IVPUSH Q6H PRN PRN Reason: Nausea/Vomiting Oxycodone HCl (Oxycodone 5 Mg Tab) 5 mg PO Q2H PRN PRN Reason: Pain (severe 7-10) Last Admin: 05/24/21 02:32 Dose: 5 mg Documented by: Sodium Chloride (Sodium Chloride 0.9% 10 Ml Syringe) 10 ml FLUSH ASDIRECTED PRN PRN Reason: Keep Vein Open Sodium Chloride (Sodium Chloride 0.9% 2.5 Ml Syringe) 2.5 ml FLUSH ASDIRECTED PRN PRN Reason: Keep Vein Open Sodium Chloride (Sodium Chloride 0.9% 10 Ml Sdv) 10 ml IV ASDIRECTED PRN PRN Reason: IV Use Sterile Water (Water For Irrigation,Sterile 1,000 Ml Container) 1,000 ml IRR ASDIRECTED PRN PRN Reason: delivery Witch Lesli (Witch Lesli Medicated Pads 40/Jar) 1 pad TOP ASDIRECTED PRN PRN Reason: comfort care Last Admin: 05/23/21 10:12 Dose: 1 container Documented by: Discontinued Medications Butorphanol Tartrate (Butorphanol 1 Mg/Ml Sdv) 1 mg IVPUSH Q1H PRN PRN Reason: Pain (severe 7-10) Oxytocin/Sodium Chloride (Oxytocin 30 Unit/500 Ml-Ns) Confirm Administered Dose 30 unit in 500 mls @ as directed .ROUTE .STK-MED ONE Stop: 05/23/21 08:51 Misoprostol (Misoprostol 200 Mcg Tab) 200 mcg PO ONETIME PRN PRN Reason: Post Hemorrhage - Interaction Support Person: - Recovery Exam Fundal Tone: Firm Fundal Level: 3 Fingerbreadths Below Umbilicus Fundal Placement: Midline Lochia Amount: Scant Lochia Color: Rubra/Red Perineum Description: Intact, Minimal Bruising/Swelling Episiotomy/Laceration: None Bladder Status: Voiding Urinary Elimination: Voided - Exam General: Alert HEENT: Pupils Equal Neck: Supple Lungs: Clear to Auscultation, Normal Respiratory Effort Cardiovascular: Regular Rate, Regular Rhythm GI/Abdominal Exam: Normal Bowel Sounds Extremities: Normal Inspection Neurological: No New Focal Deficit - Problem List & Annotations (1) Vaginal delivery SNOMED Code(s): 997366297 Code(s): O80 - ENCOUNTER FOR FULL-TERM UNCOMPLICATED DELIVERY Status: Acute Current Visit: No - Problem List Review Problem List Initiated/Reviewed/Updated: Yes - Assessment Assessment:: 25yo P2 s/p , PPD2 GBS unknown Doing well - Plan Plan:: Routine care Pain control as needed Encourage D/C home today
== END 2021-05-25 13:34 | disposition home or self-care (01) | DRG 807 ==
LOC: MW.OBCHECK 08:29 → MW.OB 08:30 → UNDOADMOB 08:45 → MW.OBCHECK 08:45 → MW.OB 09:06 → INTOOBSV 09:38 → OBSVTOIN 09:38 → MW.OB 14:05
PROVIDERS: ADMIT Obstetrics & Gynecology; ATTEND Obstetrics & Gynecology
PROC: 10E0XZZ Delivery of Products of Conception, External Approach (ICD-10-PCS; principal; 2021-05-23)
DX: O62.3 Precipitate labor (principal); Z37.0 Single live birth; Z3A.37 37 weeks gestation of pregnancy; Z20.822 Contact with and (suspected) exposure to COVID-19
CPT/HCPCS: 36415; 59025; 59409; 85014; 85018; 85027; 86592; 86850; 86900; 86901; 87653; A9270-GY; J2590; J7120; U0002

== ENCOUNTER 2021-07-23 06:58 | Day surgery (SDC) | payer OTHER ==
[~2021-07-23 06:58] MED LIST: Lactated Ringers 1,000 ML IV SCH
--- NOTE | 2021-07-23 07:38 | PCM.PREANE ---
Preanesthetic Assessment - Procedure Proposed Procedure: LEEP - Anesthesia/Transfusion/Family Hx Anesthesia History: No Prior Anesthesia Family History of Anesthesia Reaction: No Transfusion History: No Prior Transfusion(s) - Review of Systems General: No Symptoms Pulmonary: No Symptoms Cardiovascular: No Symptoms Gastrointestinal: No Symptoms (Occas HB - Anitacids) Neurological: No Symptoms Other: Reports: None - Physical Assessment NPO Status Date: 07/22/21 NPO Status Time: 20:00 Vital Signs: Last Vital Signs Temp 96.8 F L 07/23/21 07:12 Pulse 61 07/23/21 07:12 Resp 15 07/23/21 07:12 BP 111/70 07/23/21 07:12 Pulse Ox Height: 5 ft 9.25 in Weight: 54.431 kg ASA Class: 2 Mental Status: Alert & Oriented x3 Airway Class: Mallampati = 3 Dentition: Reports: Normal Dentition Thyro-Mental Finger Breadths: 3 Mouth Opening Finger Breadths: 3 ROM/Head Extension: Full Lungs: Clear to Auscultation, Normal Respiratory Effort Cardiovascular: Regular Rate, Regular Rhythm - Lab Values: Laboratory Last Values WBC 6.36 K/uL (4.0-11.0) 07/23/21 07:25 RBC 4.04 M/uL (4.30-5.90) L 07/23/21 07:25 Hgb 12.1 g/dL (12.0-16.0) 07/23/21 07:25 Hct 35.9 % (36.0-46.0) L 07/23/21 07:25 MCV 88.9 fL (80.0-98.0) 07/23/21 07:25 MCH 30.0 pg (27.0-32.0) 07/23/21 07:25 MCHC 33.7 g/dL (31.0-37.0) 07/23/21 07:25 RDW Std Deviation 44.1 fl (28.0-62.0) 07/23/21 07:25 RDW Coeff of Lyle 14 % (11.0-15.0) 07/23/21 07:25 Plt Count 282 K/uL (150-400) 07/23/21 07:25 MPV 9.30 fL (7.40-12.00) 07/23/21 07:25 Nucleated RBC % 0.0 /100WBC 07/23/21 07:25 Nucleated RBCs # 0 K/uL 07/23/21 07:25 Urine HCG, Qual NEGATIVE (NEGATIVE) 07/23/21 07:20 - Allergies Allergies/Adverse Reactions: Allergies Allergy/AdvReac Type Severity Reaction Status Date / Time No Known Allergies Allergy Verified 07/20/21 07:42 - Acknowledgements Anesthesia Type Planned: General Anesthesia Pt an Appropriate Candidate for the Planned Anesthesia: Yes Alternatives and Risks of Anesthesia Discussed w Pt/Guardian: Yes Pt/Guardian Understands and Agrees with Anesthesia Plan: Yes PreAnesthesia Questionnaire - Past Health History Medical/Surgical History: Denies Medical/Surgical History HEENT History: Reports: None Cardiovascular History: Reports: None Respiratory History: Reports: None Gastrointestinal History: Reports: Other (See Below) Other Gastrointestinal History: occasional heartburn- no medications Genitourinary History: Reports: None 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: , Spontaneous Other OB/BYN History: last delivery 05/23/21, currently breast feeding Musculoskeletal History: Reports: None Neurological History: Reports: None Psychiatric History: Reports: None Endocrine/Metabolic History: Reports: None Hematologic History: Reports: None Immunologic History: Reports: None Oncologic (Cancer) History: Reports: None Dermatologic History: Reports: None - Infectious Disease History Infectious Disease History: Reports: Human Papilloma Virus (HPV), Other (See Below) Other Infectious Disease History: CIN2 - Past Surgical History Head Surgeries/Procedures: Reports: None HEENT Surgical History: Reports: None Cardiovascular Surgical History: Reports: None Respiratory Surgical History: Reports: None GI Surgical History: Reports: None Female Surgical History: Reports: None Endocrine Surgical History: Reports: None Neurological Surgical History: Reports: None Musculoskeletal Surgical History: Reports: None Oncologic Surgical History: Reports: None Dermatological Surgical History: Reports: None - SUBSTANCE USE Tobacco Use Status *Q: Never Tobacco User Recreational Drug Use History: No - HOME MEDS Home Medications: Home Meds #103/Iron Fumarate/Fa [ ] 1 tab PO DAILY 12/31/18 [History] - CURRENT (IN HOUSE) MEDS Current Meds: Current Medications Lactated Ringer's (Ringers, Lactated) 1,000 mls @ 100 mls/hr IV ASDIRECTED [facility] Last Admin: 07/23/21 07:26 Dose: 100 mls/hr Documented by:
[2021-07-23] MEDS ORDERED: Midazolam 1 MG/ML 2 ML SDV ONE (07:44)
[2021-07-23] MEDS ORDERED: fentaNYL 100 MCG/2 ML SDV ONE (07:44)
[2021-07-23] MEDS ORDERED: Propofol 200 MG/20 ML SDV ONE (07:44)
[2021-07-23] MEDS ORDERED: Ketorolac 30 MG/ML SDV ONE (07:45)
[2021-07-23] MEDS ORDERED: Lidocaine 2% 5 ML SDV ONE (07:45)
[2021-07-23] MEDS ORDERED: Glycopyrrolate 0.2 MG/ML SDV ONE (07:45)
[2021-07-23] MEDS ORDERED: Ondansetron 4 MG/2 ML SDV ONE (07:45)
[2021-07-23] MEDS ORDERED: Morphine 2 MG/ML SYRINGE IVPUSH PRN (07:59)
[2021-07-23] MEDS ORDERED: Naloxone 0.4 MG/ML SDV IVPUSH PRN (07:59)
[2021-07-23] MEDS ORDERED: Metoclopramide 10 MG/2 ML SDV IVPUSH PRN (07:59)
[2021-07-23] MEDS ORDERED: Ondansetron 4 MG/2 ML SDV IVPUSH PRN (07:59)
[2021-07-23] MEDS ORDERED: fentaNYL 100 MCG/2 ML SDV IVPUSH PRN (07:59)
[2021-07-23] MEDS ORDERED: Albuterol 0.083% 2.5 MG/3 ML Neb Soln NEB PRN (07:59)
[2021-07-23] MEDS ORDERED: HYDROmorphone 1 MG/ML Syringe IVPUSH PRN (07:59)
[2021-07-23] MEDS ORDERED: Acetaminophen/oxyCODONE 325-5 MG Tab PO ONE (09:00)
--- NOTE | 2021-07-23 09:03 | PCM.OPNOTE ---
- General Post-Op/Procedure Note Date of Surgery/Procedure: 07/23/21 Operative Procedure(s): Loop electrosurgical excision procedure Findings: Small Cervix with ectropion noted Pre Op Diagnosis: Cervical intraepithelial neoplasia 2 Post-Op Diagnosis: same Anesthesia Technique: General Mask Primary Surgeon: Gerardo Michelle Anesthesia Provider: Marcus Delgado Pathology: Leep portion of cervix Endocervical curettings Fluid Replacement, Intraop: 500 EBL in mLs: 10 Complications: None Condition: Good
--- NOTE | 2021-07-23 09:03 | PCM.POSTAN ---
POST ANESTHESIA ASSESSMENT - MENTAL STATUS Mental Status: Alert, Oriented - VITAL SIGNS Vital Signs: Last Vital Signs Temp 97.2 F 07/23/21 08:44 Pulse 77 07/23/21 09:00 Resp 18 07/23/21 09:00 BP 105/62 07/23/21 09:00 Pulse Ox 98 07/23/21 09:00 - RESPIRATORY Respiratory Status: Respiratory Rate WNL, Airway Patent, O2 Saturation Stable - CARDIOVASCULAR CV Status: Pulse Rate WNL, Blood Pressure Stable - GASTROINTESTINAL GI Status: No Symptoms - PAIN Pain Score: 0 - POST OP HYDRATION Hydration Status: Adequate & Stable
--- NOTE | 2021-07-23 09:06 | PCM48HPAN ---
Post Anesthesia Note - EVALUATION WITHIN 48HRS OF ANESTHETIC Vital Signs in Normal Range: Yes Patient Participated in Evaluation: Yes Respiratory Function Stable: Yes Airway Patent: Yes Cardiovascular Function Stable: Yes Hydration Status Stable: Yes Pain Control Satisfactory: Yes Nausea and Vomiting Control Satisfactory: Yes Mental Status Recovered: Yes Vital Signs: Last Vital Signs Temp 97.2 F 07/23/21 08:44 Pulse 70 07/23/21 09:05 Resp 14 07/23/21 09:05 BP 101/68 07/23/21 09:05 Pulse Ox 97 07/23/21 09:05 - COMMENTS/OBSERVATIONS Free Text/Narrative:: Pt doing well post-op. VSS. No apparent anesthetic complications. Dr. Hunter Villanueva
--- NOTE | 2021-07-23 13:51 | OR ---
SURGEON: LESLIE COMBS DATE OF PROCEDURE: 07/23/2021 PREOPERATIVE DIAGNOSES: A 25-year-old P2-0-1-2 with cervical intraepithelial neoplasia 2. POSTOPERATIVE DIAGNOSIS: A 25-year-old P2-0-1-2 with cervical intraepithelial neoplasia 2. PROCEDURE: Loop electrosurgical excision procedure. ANESTHESIA: General. FINDINGS: Small cervix with ectropion around the cervical os around the transformation zone. PATHOLOGY: Cervical cone and ECC ESTIMATED BLOOD LOSS: 10 mL. DESCRIPTION OF PROCEDURE: The patient was taken to the operating room and placed in the supine position on the operating table where general anesthesia was administered. She was placed in the dorsal lithotomy position where she was draped in the usual manner. An insulated bivalved speculum was inserted into the cervix to expose the cervix. The cervix was cleaned with acetic acid.Acetowhite was noted around the ectropion zone. The cervix was infiltrated with diluted 1% lidocaine with epi at 12 o'clock and 6 o'clock, about 5 mL and 3 mL were injected in each spot. Loop electrode was then obtained, and a cone biopsy was carried out using a blended current of 60 cutting and 60 coagulation. There was some bleeding noted after the specimen was tagged at 12 o'clock position. After the excision of the cone biopsy specimen, the additional area of surrounding epithelium was cauterized with ball electrode. A small endocervical curettage was also taken with the Mkian curette. All instruments were removed. She was awakened from anesthesia without difficulty and transferred to the recovery room in stable condition. The procedure went well with no complications. LANETTE WILL /[id number] JAYE
== END 2021-07-23 10:10 | disposition home or self-care (01) ==
LOC: MW.SDS 06:58
PROVIDERS: ATTEND Obstetrics & Gynecology
DX: N87.0 Mild cervical dysplasia (principal); Z79.899 Other long term (current) drug therapy
CPT/HCPCS: 36415; 57522; 81025; 85027; 88305; 88307; J1885; J2250; J2704; J3490; J7120; 00940; J2405; J3010